=== PATIENT | female | born 1940 | race Two or more races ===

== ENCOUNTER 2016-05-27 05:43 | Emergency (ER) | payer OTHER ==
[2016-05-27 05:54] VITALS: TEMP 98.6; BMI 25.7
--- NOTE | 2016-05-27 06:23 | PDOC ---
[id number] No Limitations - History of Present Illness Initial Comments: 05/27/16 06:24 The patient is a 75 year old female with significant past medical history of hypertension and hyperlipidemia who presents to the ED for 3 days of left-sided rib cage pain. Patient reports 3 days ago she was getting into a car when she twisted the wrong way and sustained pain to the left-side of her rib cage. States the pain is worsened upon movement, deep inspiration and coughing. She took ibuprofen last night with no relief. Denies SOB, chest pain, diaphoresis, leg swelling, nausea, or vomiting. The patient denies fever, chills, abdominal pain, and diarrhea. Allergies: NKDA Social History: No alcohol, tobacco, or drug use reported. Past Surgical History: None reported PCP: Dr. Amaury Henriquez <Nikki Garcia - Last Filed: 05/27/16 06:32> - General History Source: Patient <Deshaun Jones - Last Filed: 06/07/16 19:14> - General Chief Complaint: Pain Stated Complaint: LT SIDE PAIN Time Seen by Provider: 05/27/16 05:53 Past History <Nikki Garcia - Last Filed: 05/27/16 06:32> - Past Medical History HTN: Yes Hypercholesterolemia: Yes - Psycho/Social/Smoking Cessation Hx Suicidal Ideation: No Smoking History: Never smoked Have you smoked in the past 12 months: No Information on smoking cessation initiated: No Hx Alcohol Use: No Drug/Substance Use Hx: No <Deshaun Jones - Last Filed: 06/07/16 19:14> - Past Medical History Allergies/Adverse Reactions: Allergies Allergy/AdvReac Type Severity Reaction Status Date / Time No Known Allergies Allergy Verified 05/27/16 05:48 Home Medications: Ambulatory Orders Hydrochlorothiazide [Hctz -] 25 mg PO DAILY 05/27/16 Simvastatin [Zocor] 10 mg PO HS 05/27/16 Review of Systems - Review of Systems Able to Perform ROS?: Yes Comments:: 05/27/16 06:24 CONSTITUTIONAL: Absent: fever, no chills, no fatigue EYES: Absent: visual changes ENT: Absent: ear pain, no sore throat CARDIOVASCULAR: Absent: chest pain, no palpitations RESPIRATORY: +cough Absent: no SOB GI: Absent: abdominal pain, no nausea, no vomiting, no constipation, no diarrhea GENITOURINARY: Absent: dysuria, no frequency, no hematuria MUSCULOSKELETAL: +left-sided rib cage pain Absent: back pain, no arthralgia SKIN: Absent: rash NEURO: Absent: headache <JaylinjuliaNikki worthy - Last Filed: 05/27/16 06:32> *Physical Exam - Vital Signs Last Vital Signs Temp Pulse Resp BP Pulse Ox 98.6 F 73 14 127/63 96 05/27/16 05:50 05/27/16 05:50 05/27/16 05:50 05/27/16 05:50 05/27/16 05:50 - Physical Exam Comments: 05/27/16 06:24 GENERAL: Well-appearing, well-nourished. No apparent distress. HEENT: Normocephalic, atraumatic. PERRL, EOM intact. CARDIOVASCULAR: Normal S1, S2. Regular rate and rhythm. PULMONARY: Clear to auscultation bilaterally. ABDOMEN: Soft, non-distended, non-tender. EXTREMITIES: Normal ROM in all four extremities. No gross deformities. MUSCULOSKELETAL: Tenderness over the left lower anterior rib cage SKIN: Warm, dry. No rash NEUROLOGICAL: No focal neurological deficits. <JoseNikki - Last Filed: 05/27/16 06:32> - Vital Signs Last Vital Signs Temp Pulse Resp BP Pulse Ox 98.6 F 73 14 127/63 96 05/27/16 05:50 05/27/16 05:50 05/27/16 05:50 05/27/16 05:50 05/27/16 05:50 <Deshaun Jones - Last Filed: 06/07/16 19:14> Heart Score/ECG Review - ECG Impressions Comment:: 05/27/16 06:32 NSR @78bpm Normal ECG <JoseNikki - Last Filed: 05/27/16 06:32> ED Treatment Course - LABORATORY CBC & Chemistry Diagram: 05/27/16 06:19 05/27/16 06:19 <JoseNikki - Last Filed: 05/27/16 06:32> - LABORATORY CBC & Chemistry Diagram: 05/27/16 06:19 05/27/16 06:19 - RADIOLOGY Radiology Studies Ordered: Category Date Time Status CHEST X-RAY PORTABLE* [RAD] Stat Radiology 05/27/16 06:11 Ordered <Deshaun Jones - Last Filed: 06/07/16 19:14> Medical Decision Making - Medical Decision Making 06/07/16 19:14 Dr. Jones: The scribe's documentation has been prepared under my direction and personally reviewed by me in its entirery. I confirm that the note above accurately reflects all work, treatment, procedures, and medical decision making performed by me. <Deshaun Jones - Last Filed: 06/07/16 19:14> *DC/Admit/Observation/Transfer - Attestations Scribe Attestion: 05/27/16 06:24 Documentation prepared by Nikki Garcia, acting as medical secretary for Deshaun Jones MD <Nikki Garcia - Last Filed: 05/27/16 06:32> - Discharge Dispostion Admit: No <Deshaun Jones - Last Filed: 06/07/16 19:14> Diagnosis at time of Disposition: Rib pain on left side - Discharge Dispostion Disposition: HOME Condition at time of disposition: Stable - Referrals Referrals: Amaury Henriquez MD [Primary Care Provider] - - Patient Instructions Printed Discharge Instructions: DI for Rib Contusion Additional Instructions: Take motrin 400 mg every 6 hours as needed for pain. Follow up with your primary care doctor in 2-3 days.
[2016-05-27] MEDS ORDERED: KETOROLAC TROMETHAMINE 30 MG/1 ML VIAL IVPUSH ONE (06:30)
[2016-05-27 06:34] LABS: BASOPHIL 0.5 % (0-2.0); EOSINOPHIL 4.5 % (0-4.5); MCH 27.8 pg (25.7-33.7); MCHC 33.8 g/dl (32.0-36.0); MEAN CELL VOLUME 82.2 fl (80-96); MEAN PLT VOLUME 7.1 fl (7.5-11.1); NEUTROPHILS 51.9 % (42.8-82.8); PLATELET COUNT 256 K/MM3 (134-434); RDW 13.7 % (11.6-15.6); WHITE BLOOD COUNT 4.9 K/mm3 (4.0-10.0)
[2016-05-27] MEDS ORDERED: KETOROLAC TROMETHAMINE 30 MG/1 ML VIAL ONE (06:37)
[2016-05-27 06:57] LABS: URINE APPEARANCE CLEAR; URINE BILIRUBIN NEGATIVE (NEGATIVE); URINE BLOOD NEGATIVE (NEGATIVE); URINE COLOR COLORLESS; URINE GLUCOSE (UA) NEGATIVE (NEGATIVE); URINE KETONE NEGATIVE (NEGATIVE); URINE LEUK ESTERASE NEGATIVE (NEGATIVE); URINE NITRITE NEGATIVE (NEGATIVE); URINE PROTEIN NEGATIVE (NEGATIVE); URINE UROBILINOGEN NEGATIVE E.U./dl (0.2-1.0)
[2016-05-27 07:04] LABS: ALBUMIN 3.6 g/dl (3.4-5.0); ANION GAP 9 (8-16); BILIRUBIN,TOTAL 0.3 mg/dL (0.2-1.0); CALCIUM 8.7 mg/dL (8.5-10.1); CO2 26 mmol/L (21-32); COCKROFT - GAULT 28.7725; CREATININE 1.7 mg/dL (0.55-1.02); GLUCOSE,RANDOM 102 mg/dL (74-106); MAGNESIUM 2.2 mg/dL (1.8-2.4); SGOT/AST 21 U/L (15-37); SGPT/ALT 19 U/L (12-78); TOT PROT 6.9 g/dl (6.4-8.2)
[2016-05-27 07:07] LABS: ALK PHOS 76 U/L (45-117); TROPONIN I < 0.02 ng/ml (0.00-0.05)
[2016-05-27 07:23] LABS: INR 1.03 (0.82-1.09); PROTHROMBIN TIME (PATIENT) 11.3 SEC (9.98-11.88)
--- NOTE | 2016-05-27 07:27 | PDOC ---
*Physical Exam - Vital Signs Last Vital Signs Temp Pulse Resp BP Pulse Ox 98.6 F 73 14 127/63 96 05/27/16 05:50 05/27/16 05:50 05/27/16 05:50 05/27/16 05:50 05/27/16 05:50 ED Treatment Course - LABORATORY CBC & Chemistry Diagram: 05/27/16 06:19 05/27/16 06:19 - ADDITIONAL ORDERS Additional order review: Laboratory Results 05/27/16 06:19 Sodium 142 Potassium 4.7 Chloride 107 Carbon Dioxide 26 Anion Gap 9 BUN 21 H Creatinine 1.7 H Creat Clearance w eGFR 29.14 Random Glucose 102 Calcium 8.7 Magnesium 2.2 Total Bilirubin 0.3 AST 21 ALT 19 Alkaline Phosphatase 76 Creatine Kinase 111 Troponin I < 0.02 B-Natriuretic Peptide 189.63 Total Protein 6.9 Albumin 3.6 Lipase 242 05/27/16 06:19 RBC 3.73 MCV 82.2 MCHC 33.8 RDW 13.7 MPV 7.1 L Neutrophils % 51.9 Lymphocytes % 32.3 Monocytes % 10.8 H Eosinophils % 4.5 Basophils % 0.5 - Medications Given in the ED: ED Medications Discontinued Medications Generic Name Dose Route Start Last Admin Trade Name Freq PRN Reason Stop Dose Admin Ketorolac Tromethamine 30 mg 05/27/16 06:30 05/27/16 06:40 Toradol Injection - IVPUSH 05/27/16 06:31 30 mg ONCE ONE Administration Medical Decision Making - Medical Decision Making 05/27/16 07:26 Pt endorsed to me by Dr. Jones at 7am shift change. Presents with L sided rib pain after a twisting movement. Awaiting XR and labs. 05/27/16 09:49 Pt reassessed. Labs and CXR wnl. On exam she has reproducible tenderness over L lateral inferior rib margin. Stable for DC home with analgesia. NSAIDs for pain , outpatient f/u. *DC/Admit/Observation/Transfer Diagnosis at time of Disposition: Rib pain on left side - Discharge Dispostion Disposition: HOME Condition at time of disposition: Stable Admit: No - Referrals Referrals: Amaury Henriquez MD [Primary Care Provider] - - Patient Instructions Printed Discharge Instructions: DI for Rib Contusion Additional Instructions: Take motrin 400 mg every 6 hours as needed for pain. Follow up with your primary care doctor in 2-3 days. - Post Discharge Activity
--- NOTE | 2016-05-27 09:15 | EKG ---
Test Reason : Blood Pressure : / mmHG Vent. Rate : 078 BPM Atrial Rate : 078 BPM P-R Int : 196 ms QRS Dur : 078 ms QT Int : 384 ms P-R-T Axes : 058 -21 031 degrees QTc Int : 437 ms NORMAL SINUS RHYTHM NORMAL ECG NO PREVIOUS ECGS AVAILABLE Confirmed by VLADIMIR CHARLES MD ([id number]) on 05/27/2016 9:14:46 AM Referred By: Confirmed By:VLADIMIR CHARLES MD
[2016-05-27] MEDS ORDERED: IBUPROFEN 400 MG TABLET (FP) PO ONE (09:40)
[2016-05-27 10:03] VITALS: BP 120/70; PULSE 72
== END 2016-05-27 10:03 | disposition home or self-care (01) ==
LOC: JER 05:43
PROC: 3E0333Z Introduction of Anti-inflammatory into Peripheral Vein, Percutaneous Approach (ICD-10-PCS; principal; 2016-05-27)
DX: S09.8XXA Other specified injuries of head, initial encounter (principal); X50.0XXA Overexertion from strenuous movement or load, initial encounter; Y93.89 Activity, other specified; V48.4XXA Person boarding or alighting a car injured in noncollision transport accident, initial encounter; Y92.488 Other paved roadways as the place of occurrence of the external cause; Y99.8 Other external cause status
CPT/HCPCS: 36415; 71010-TC; 80053; 81003; 82550; 83690; 83735; 83880; 84484; 85025; 85610; 93005; 93010; 96374; 99283-25

== ENCOUNTER 2017-03-04 07:52 | Emergency (ER) | payer OTHER ==
[2017-03-04 08:04] VITALS: BP 130/67; PULSE 100; TEMP 98.6; BMI 24.3
[2017-03-04] MEDS ORDERED: KETOROLAC TROMETHAMINE 30 MG/1 ML VIAL IM ONE (08:41)
[2017-03-04] MEDS ORDERED: KETOROLAC TROMETHAMINE 30 MG/1 ML VIAL ONE (08:44)
--- NOTE | 2017-03-04 09:17 | PDOC ---
History of Present Illness - General Chief Complaint: Injury Stated Complaint: FALL Time Seen by Provider: 03/04/17 08:24 History Source: Patient Exam Limitations: No Limitations - History of Present Illness Initial Comments: 03/04/17 09:12 76 yr female with slip and fall in the bathroom at 2am today landed on her back no head trauma , c/o back pain and left knee pain. no obvious trauma . pt ambulates with cane. 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 - Suicide/Smoking/Psychosocial Hx Smoking History: Never smoked Have you smoked in the past 12 months: No Information on smoking cessation initiated: No Hx Alcohol Use: No Drug/Substance Use Hx: No Substance Use Type: None Trauma Specific PMHX - Complaint Specific PMHX Arthritis: No Back Injury: No Neck Injury: No Hx Sacro Iliac Joint Dysfunction: No Review of Systems - Review of Systems Able to Perform ROS?: Yes Is the patient limited Jamaican proficient: No Constitutional: No: Symptoms Reported HEENTM: No: Symptoms Reported Respiratory: No: Symptoms reported Cardiac (ROS): No: Symptoms Reported ABD/GI: No: Symptoms Reported : No: Symptoms Reported Musculoskeletal: Yes: Symptoms Reported, Back Pain Integumentary: No: Symptoms Reported Neurological: No: Symptoms reported *Physical Exam - Vital Signs Last Vital Signs Temp Pulse Resp BP Pulse Ox 98.6 F 100 H 18 130/67 100 03/04/17 07:58 03/04/17 07:58 03/04/17 07:58 03/04/17 07:58 03/04/17 07:58 - Physical Exam General Appearance: Yes: Nourished, Appropriately Dressed HEENT: positive: EOMI, LEVON, Normal ENT Inspection, TMs Normal, Pharynx Normal Neck: positive: Supple. negative: Tender Respiratory/Chest: positive: Lungs Clear, Normal Breath Sounds. negative: Chest Tender Cardiovascular: positive: Regular Rhythm, Regular Rate Gastrointestinal/Abdominal: positive: Normal Bowel Sounds, Soft Musculoskeletal: positive: Normal Inspection, Vertebral Tenderness (thoracic lumbar spine parapsinal soft tissue tenderness). negative: CVA Tenderness, CVA Tenderness (R), CVA Tenderness (L), Muscle Spasm Extremity: positive: Normal Capillary Refill, Normal Inspection, Normal Range of Motion, Tender (left kne laterally, no bony tenderness) Integumentary: positive: Normal Color, Dry, Warm Neurologic: positive: Fully Oriented, Alert, Normal Mood/Affect, Normal Response , Motor Strength 06/17 ED Treatment Course - RADIOLOGY Radiology Studies Ordered: Category Date Time Status RIBS-LEFT SIDE [RAD] Stat Radiology 03/04/17 08:41 Ordered SPINE-LUMBAR SACRAL [RAD] Stat Radiology 03/04/17 08:41 Ordered SPINE-THORACIC [RAD] Stat Radiology 03/04/17 08:41 Ordered - Medications Given in the ED: ED Medications Discontinued Medications Generic Name Dose Route Start Last Admin Trade Name Freq PRN Reason Stop Dose Admin Ketorolac Tromethamine 30 mg 03/04/17 08:41 03/04/17 08:52 Toradol Injection - IM 03/04/17 08:42 30 mg ONCE ONE Administration Medical Decision Making - Medical Decision Making 03/04/17 09:28 cc: slip and fall in the bathroom no head trauma injured the back and the left knee no obvious trauma on exam no SOB lungs are CTA left knee with FROM no crepitus *DC/Admit/Observation/Transfer Diagnosis at time of Disposition: Knee effusion, left Back injury Qualifiers: Encounter type: initial encounter Qualified Code(s): S39.92XA - Unspecified injury of lower back, initial encounter - Discharge Dispostion Disposition: HOME Condition at time of disposition: Good - Prescriptions Prescriptions: Naproxen [Naprosyn -] 500 mg PO BID PRN #14 tablet PRN Reason: Pain - Referrals Referrals: Amaury Henriquez MD [Primary Care Provider] - Gordon Hidalgo MD [Staff Physician] - - Patient Instructions Additional Instructions: follow with for further management of back pain if symptoms do not improve in 3-4 days or if they get worse and for your knee pain take the naprosyn as prescribed for pain apply ice to the areas of pain every 3hrs for 15 minutes return to ER for any worsening pain - Post Discharge Activity
== END 2017-03-04 10:40 | disposition home or self-care (01) ==
LOC: JERFT 07:52
PROC: 3E0333Z Introduction of Anti-inflammatory into Peripheral Vein, Percutaneous Approach (ICD-10-PCS; principal; 2017-03-04)
DX: S39.82XA Other specified injuries of lower back, initial encounter (principal); M25.462 Effusion, left knee; W18.39XA Other fall on same level, initial encounter; Y93.89 Activity, other specified; Y92.031 Bathroom in apartment as the place of occurrence of the external cause; Y99.8 Other external cause status; I10 Essential (primary) hypertension; E78.00 Pure hypercholesterolemia, unspecified; P11.3 Birth injury to facial nerve
CPT/HCPCS: 71101-TC; 72070-TC; 72100-TC; 73562-TC-LT; 96372; 99281-25